=== PATIENT | female | born 1940 | race Caucasian/White ===

== ENCOUNTER → 2021-09-10 10:48 | Outpatient (CLI) | payer MEDICARE, SELFPAY ==
--- NOTE | ~2021-09-10 | MM_ITS ---
EXAMINATION: MM screening [facility] BI w danilo HISTORY: Screening mammogram TECHNIQUE: Craniocaudal and mediolateral oblique 3-D tomosynthesis images were obtained and synthetic 2-D images were generated. CAD analysis was submitted and interpreted. COMPARISON: 06/12/2019, 03/27/2018, 03/23/2018, 03/20/2017 BREAST PARENCHYMAL COMPOSITION: There are scattered areas of fibroglandular density. FINDINGS: There is no evidence of suspicious mass, calcification, or architectural distortion to sugg est malignancy in either breast. There has been no suspicious interval change. IMPRESSION: 1. No mammographic evidence of malignancy. 2. Recommend routine screening mammography while the patient remains in good health. BI-RADS Category 1: Negative Reviewed, dictated and finalized at location A. ING ATTORNEY IMPRESSION: 1. No mammographic evidence of malignancy. 2. Recommend routine screening mammography while the patient remains in good he alth. BI-RADS Category 1: Negative
--- NOTE | ~2021-09-10 | DEXA_ITS ---
Bone Density Report Name: WILNER YOUSIF Age: 81 Sex: Female Ethnicity: White Date of : 1940 Indication: osteopenia; height loss; postmenopausal Referring Provider: SAMAN CARBAJAL Study: Bone densitometry was performed. Exam Date: September 10, 2021 Accession number: [id number] Bone Density: Region BMD T-score Z-score Classification AP Spine (L1-L4) 0.892 -1.4 1.4 Osteopenia Femoral Neck (Left) 0.586 -2.4 0.1 Osteopenia Total Hip (Left) 0.776 -1.4 0.9 Osteopenia Femoral Neck (Right) 0.623 -2.0 0.4 Osteopenia Total Hip (Right) 0.770 -1.4 0.8 Osteopenia Total Hip Mean 0.773 -1.4 0.9 Osteopenia World Health Organization criteria for BMD impression classify patients as: Normal (T-score at or above -1.0), Osteopenia (T-score between -1.0 and -2.5), or Osteoporosis (T-score at or below -2.5). 10-year Fracture Risk(1): Major Osteoporotic Fracture 15% Hip Fracture 5.6% Reported Risk Factors: [place] (), Neck BMD=0.586, BMI=21.0 (1) FRAX(R) Version 3.08. Fracture probability calculated for an untreated patient. Fracture probability may be lower if the patient has received treatment. Previous Exams: Region Exam Age BMD T-score BMD Change BMD Change Date g/cm2 vs Baseline vs Previous AP Spine(L1-L4) 09/10/2021 81 0.892 -1.4 -0.007 0.017 07/24/2019 79 0.875 -1.6 -0.024 0.004 07/21/2017 77 0.871 -1.6 -0.028 0.017 07/13/2015 75 0.854 -1.8 -0.045 -0.087* 07/09/2013 73 0.941 -1.0 0.042 0.001 06/22/2011 70 0.941 -1.0 0.041 0.047* 05/25/2009 68 0.893 -1.4 -0.006 0.004 05/21/2007 66 0.890 -1.4 -0.010 0.079* 03/16/2005 64 0.811 -2.1 -0.088 -0.088 02/20/2004 63 0.899 -1.3 Total Hip(Left) 09/10/2021 81 0.776 -1.4 -0.025 -0.050* 07/24/2019 79 0.827 -0.9 0.025 -0.074* 07/21/2017 77 0.901 -0.3 0.099 0.044* 07/13/2015 75 0.857 -0.7 0.055 0.101* 07/09/2013 73 0.756 -1.5 -0.045 -0.038* 06/22/2011 70 0.794 -1.2 -0.008 -0.036* 05/25/2009 68 0.830 -0.9 0.028 0.020 05/21/2007 66 0.810 -1.1 0.008 -0.061* 03/16/2005 64 0.870 -0.6 0.069 0.069 02/20/2004 63 0.802 -1.1 Total Hip(Right) 09/10/2021 81 0.770 -1.4 0.025 0.046* 07/24/2019 79 0.724 -1.8 -0.022 -0.020 07/21/2017 77 0.743 -1.6
== END ==
PROVIDERS: PCP Family Medicine; Visit Provider Family Medicine
DX: Z12.31 Encounter for screening mammogram for malignant neoplasm of breast (principal); Z78.0 Asymptomatic menopausal state; M85.88 Other specified disorders of bone density and structure, other site; M85.851 Other specified disorders of bone density and structure, right thigh; M85.852 Other specified disorders of bone density and structure, left thigh
CPT/HCPCS: 77063; 77067; 77080

== ENCOUNTER 2024-07-17 12:35 | Outpatient (CLI) | payer MEDICARE, SELFPAY ==
--- NOTE | ~2024-07-17 | DEXA_ITS ---
Bone Density Report Name: WILNER YOUSIF Age: 84 Sex: Female Ethnicity: White Date of : 1940 Indication: postmenopausal; screening for osteoporosis; height loss; Referring Provider: WILLY LÓPEZ Study: Bone densitometry was performed. Exam Date: July 17, 2024 Accession number: [id number] Bone Density: Region BMD T-score Z-score Classification AP Spine(L1-L4) 0.905 -1.3 1.6 Osteopenia Femoral Neck (Left) 0.585 -2.4 0.1 Osteopenia Total Hip (Left) 0.707 -1.9 0.4 Osteopenia Femoral Neck (Right) 0.622 -2.0 0.5 Osteopenia Total Hip (Right) 0.709 -1.9 0.4 Osteopenia Total Hip Mean 0.708 -1.9 0.4 Osteopenia World Health Organization criteria for BMD impression classify patients as: Normal (T-score at or above -1.0), Osteopenia (T-score between -1.0 and -2.5), or Osteoporosis (T-score at or below -2.5). 10-year Fracture Risk(1): Major Osteoporotic Fracture 15% Hip Fracture 5.4% Reported Risk Factors: [place] (), Neck BMD=0.585, BMI=21.1 (1) FRAX(R) Version 3.08. Fracture probability calculated for an untreated patient. Fracture probability may be lower if the patient has received treatment. Clinical Information Provided by Patient: Has used the following medications: Vitamin D, Calcium Patient maximum height was 66.0 Does not regularly consume dairy products Drinks caffeinated beverages Onset of menses at age 12 Number of children 2 Impression: The patient has low bone mass, based on the Left Femoral Neck T-score. The patient has an estimated ten-year risk of hip fracture of 5.4% and an estimated ten-year risk of major fracture of 15%, based on the WHO FRAX algorithm. Discussion: BONE DENSITY IS LOW AT ONE OR MORE SKELETAL SITES. THE PATIENT'S BMD AND CLINICAL RISK FACTORS CONTRIBUTE TO THIS PATIENT'S INCREASED RISK OF FRACTURE. This patient's lowest T-score is low at one or more skeletal sites. It meets the World Health Organization's (WHO) criteria for ?low bone mass? (T-score between -1.0 and -2.5). The patient's 10-year risk of hip fracture as calculated by FRAX exceeds the threshold where pharmacological therapy is recommended by the National Osteoporosis Foundation (NOF). However, all treatment decisions require clinical judgment and consideration of individual patient factors, including patient preferences, comorbidities, previous drug use, risk factors not captured in the FRAX model (e.g., frailty, falls, vitamin D deficiency, increased bone turnover, interval significant decline in bone density) and possible under or overestimation of fracture risk by FRAX. The patient should follow a healthful lifestyle (good nutrition with adequate calcium and vitamin D, and appropriate weight-bearing exercise). Follow-Up: Consider a repeat BMD and Vertebral Fracture Assessment (VFA) exam in 2 years or sooner if medically necessary, to reassess this patient's status. Reported by: RICHARD on 07/17/2024 1:03:00 PM. Reviewed, dictated and finalized at location [facility]
== END 2024-07-17 12:36 | disposition home or self-care (01) ==
LOC: ANHIMG 12:36
PROVIDERS: PCP Family Medicine; Visit Provider Student in an Organized Health Care Education/Training Program
DX: N95.9 Unspecified menopausal and perimenopausal disorder (principal); M85.88 Other specified disorders of bone density and structure, other site; M85.852 Other specified disorders of bone density and structure, left thigh; M85.851 Other specified disorders of bone density and structure, right thigh
CPT/HCPCS: 77080